=== PATIENT | male | born 1975 | race Caucasian/White ===

== ENCOUNTER → 2018-07-21 14:52 | Outpatient (CLI) | payer OTHER ==
[2016-05-03 10:30] VITALS: BMI 25.8
[~2018-07-21 14:52] MED LIST: ATIVAN0.5 MG PO; HYDROCODONE-APA1 TAB PO; PEPCID20 MG PO
== END | disposition home or self-care (01) ==
LOC: D.MRI 14:52
PROVIDERS: ATTEND Orthopaedic Surgery
DX: M25.522 Pain in left elbow (principal)

== ENCOUNTER 2018-08-07 08:00 | Day surgery (SDC) | payer OTHER ==
[~2018-08-07] VITALS: Ht 182.9 cm; Wt 95.3 kg
[2018-08-07 08:12] VITALS: BP 124/76; Ht 182.9 cm; Wt 95.3 kg
[2018-08-07] MEDS ORDERED: HYDROCODON-ACE1 EA10 PO (10:29)
--- NOTE | 2018-08-07 11:45 | NUR ---
DC INSTRUCTIONS GIVEN TO PT/FAMILY. STATE UNDERSTANDING. DC'D IV CATH FULLY INTACT. PT'S MOTHER TOOK PT'S PRESCRIPTION TO BRING TO PHARMACY.
--- NOTE | 2018-08-07 11:57 | NUR ---
PT LEFT UNIT VIA WC AT 1156
--- NOTE | 2018-08-10 11:22 | OP ---
PATIENT NAME: SUHAIL CARUSO III MEDICAL RECORD: [id number] :73 LOCATION:[facility] ADMISSION DATE: SURGEON: PERRY BORDEN MD DATE OF OPERATION: 08/07/2018 PREOPERATIVE DIAGNOSIS: Recalcitrant left lateral epicondylectomy with extensor communis avulsion. OPERATIVE SUMMARY IN DETAIL: After obtaining the appropriate preoperative orthopedic surgery consent as well as anesthetic consultation, evaluation, and clearance, the patient was brought to the operating room and placed on the operating table in the supine position. After general laryngeal mask was administered, tourniquet was placed about the proximal aspect of the left upper extremity. The left upper extremity was then prepped and draped in routine sterile fashion. The arm was elevated and exsanguinated, and the tourniquet was inflated to 250 mmHg. An incision was made over the lateral epicondyle and taken down to the level of the fascia. The torn extensor mechanism was easily identifiable. An elliptical incision was done to get to good viable tendon. A small portion of the lateral epicondyle was then incised gently with the small sagittal saw. Copious irrigation was then followed by placing a 3.0 SutureTak into the lateral epicondyle. The FiberWires were then used to reapproximate the extensor mechanism with excellent reapproximation and good securement back to the lateral epicondyle. This was then oversewn with #1 Vicryl followed by 2-0 Vicryl and 4-0 Prolene in running fashion. Sterile dressings were applied. Tourniquet was deflated. The patient was placed in a sling and taken to the recovery room in stable condition. All final needle and sponge counts were correct. TRANSINT:[id number] Voice Confirmation ID: [id number] DOCUMENT ID: [id number] PERRY BORDEN MD at 1122 CC: [id number] DICTATION DATE: 08/07/18 1137 ALMOND SORTER: 08/07/18 1223 [facility] 08/07/18 [place] [id number]
== END 2018-08-07 11:56 | disposition home or self-care (01) ==
LOC: D.OPS 08:00 → D.PAN 11:00 → D.OPS 11:56
PROVIDERS: ATTEND Orthopaedic Surgery
DX: S56.912A Strain of unspecified muscles, fascia and tendons at forearm level, left arm, initial encounter (principal); M77.12 Lateral epicondylitis, left elbow; Z01.812 Encounter for preprocedural laboratory examination

== ENCOUNTER → 2018-10-28 14:26 | Outpatient (CLI) | payer OTHER ==
[2018-08-07 08:12] VITALS: BMI 28.5
[~2018-10-28 14:26] MED LIST changes: +HYDROCODON-ACE1 EA10 PO
== END | disposition home or self-care (01) ==
LOC: D.MRI 14:26
PROVIDERS: ATTEND Orthopaedic Surgery
DX: M77.12 Lateral epicondylitis, left elbow (principal)

== ENCOUNTER 2018-12-01 07:10 | Day surgery (SDC) | payer OTHER ==
[~2018-12-01] VITALS: Ht 182.9 cm; Wt 95.3 kg
[2018-12-01 09:08] VITALS: BP 109/69; Ht 182.9 cm; Wt 95.3 kg
[2018-12-01] MEDS ORDERED: PERCOCET 10-321 EAC1 PO (12:03)
--- NOTE | 2018-12-01 14:19 | NUR ---
IV REMOVED 1400 PT VOIDED
--- NOTE | 2018-12-04 11:53 | OP ---
PATIENT NAME: SUHAIL CARUSO III MEDICAL RECORD: [id number] :73 LOCATION:[facility] ADMISSION DATE: SURGEON: PERRY BORDEN MD DATE OF OPERATION: 12/01/2018 PREOPERATIVE DIAGNOSIS: Repeat avulsion of the extensor mechanism of the right lateral epicondyle. POSTOPERATIVE DIAGNOSIS: Repeat avulsion of the extensor mechanism of the right lateral epicondyle. PROCEDURE: Repeat lateral epicondylectomy with repair. SURGEON: Perry Borden MD STOCK SUPERVISOR: Irving Arora INTRAOPERATIVE COMPLICATIONS: None. SUMMARY OF PATHOLOGIC FINDINGS: The patient was indeed found to have recurrent avulsion after injury he sustained in the prior postoperative period. This resulted in tearing of the extensor mechanism off the lateral epicondyle, which required repeat explorative surgery and repeat repair. OPERATIVE SUMMARY IN DETAIL: After obtaining the appropriate preoperative orthopedic surgery consent as well as anesthetic consultation, evaluation and clearance, the patient was brought to the operating room and placed on the operating table in supine position. After general laryngeal mask airway was administered, the tourniquet was placed on the proximal aspect of the right upper extremity. Right upper extremity was then prepped and draped in routine sterile fashion. At this time, the appropriate preoperative timeout was taken by all and agreed upon by all using the appropriate patient identifiers. At this point, arm was elevated, exsanguinated and tourniquet was inflated to 250 mmHg. The utilized incision was utilized in the past only slightly longer. This was again taken down to the level of lateral epicondyle. Care was taken to stay out of the elbow joint itself. Elliptical incision was done of all scar tissue. The [place] tendons of the extensor mechanism were found, freed up, and then a SwiveLock from [employer] was placed into the lateral epicondyle again with good fixation and utilized for reapproximation of the extensor tendon mass. Having completed this, the fascia was oversewn with a #1 Vicryl followed by 2-0 Vicryl and a 4-0 Prolene in running fashion. Sterile dressings were applied. Tourniquet was deflated. The patient was awakened and taken to the recovery room in stable condition. All final needle and sponge counts were correct. TRANSINT:[id number] Voice Confirmation ID: [id number] DOCUMENT ID: [id number] PERRY BORDEN MD at 1153 CC: [id number] DICTATION DATE: 12/04/18 1117 TELEGRAPH AND TELETYPE OPERATOR: 12/04/18 1144 [facility] [place] 12/01/18 [place] [id number] [place] [address]
== END 2018-12-01 14:20 | disposition home or self-care (01) ==
LOC: D.OPS 07:10 → D.PAN 11:45 → D.OPS 11:55 → D.PAN 12:00 → D.OPS 14:20
PROVIDERS: ATTEND Orthopaedic Surgery
DX: S56.912A Strain of unspecified muscles, fascia and tendons at forearm level, left arm, initial encounter (principal); M77.12 Lateral epicondylitis, left elbow

== ENCOUNTER → 2019-06-01 13:04 | Outpatient (CLI) | payer OTHER ==
[2018-12-01 09:08] VITALS: BMI 28.5
[~2019-06-01 13:04] MED LIST changes: +PERCOCET 10-321 EAC1 PO
== END | disposition home or self-care (01) ==
LOC: D.MRI 13:04
PROVIDERS: ATTEND Orthopaedic Surgery
DX: R22.41 Localized swelling, mass and lump, right lower limb (principal)

== ENCOUNTER 2019-07-09 09:30 | Day surgery (SDC) | payer OTHER ==
[2018-12-01 09:08] VITALS: Ht 182.9 cm; Wt 90.7 kg
[~2019-07-09] VITALS: Ht 182.9 cm; Wt 90.7 kg
[~2019-07-09 09:30] MED LIST changes: +ANUSOL-HC25 MG RC; +LEXAPRO10 MG PO; +TRAZODONE HCL150 MG PO
[2019-07-09 10:03] VITALS: BP 116/69; BMI 27.2
[2019-07-09] MEDS ORDERED: HYDROCODON-ACE1 EA10 PO (14:36)
--- NOTE | 2019-07-13 09:56 | OP ---
PATIENT NAME: SUHAIL CARUSO III MEDICAL RECORD: [id number] :73 LOCATION:[facility] ADMISSION DATE: SURGEON: PERRY BORDEN MD DATE OF OPERATION: 07/09/2019 PREOPERATIVE DIAGNOSIS: Infrapatellar bursal mass. POSTOPERATIVE DIAGNOSIS: Infrapatellar bursal mass. PROCEDURE: Excision of infrapatellar bursal mass. SURGEON: Perry Borden MD SKIVER SOCK LININGS: WOODROW Millan INTRAOPERATIVE COMPLICATIONS: None. SUMMARY OF PATHOLOGIC FINDINGS: Directly over the patient's tibial tuberosity, the infrapatellar bursa was hypertrophic, thickened and multidirectional had grown. This is consistent with the patient's examination, MRI and pain. Upon excision, it was found that the patient's infrapatellar bursa essentially had grown out multiple finger-like projections. I did not see any evidence of neoplasm. Therefore, the surgery was continued in all arms of this infrapatellar bursa were removed. The bursa itself was extremely thickened, but did not involve the paratenon of the patellar tendon. OPERATIVE SUMMARY IN DETAIL: After obtaining the appropriate preoperative orthopedic surgery consent as well as anesthetic consultation, evaluation and clearance, the patient was brought to the operating room and placed on the operating table in a supine position. After general laryngeal mask airway was administered, the patient's right lower extremity was prepped and draped in routine sterile fashion. No tourniquet was utilized in this case. Incision was made directly over the tibial tuberosity given the MRI guidance. Just below the subQ layer, the bursa was encountered and found to be extremely thickened. Careful dissection was carried out both proximally, distally, medially and laterally. There were some extensions unexpected. They were also dissected carefully. The entire bursa was removed en bloc and sent for pathologic review. It was of note that the paratenon was not violated, but this was a very lobulated bursitis. After all had been removed, the area was completely irrigated and closed by WOODROW Millan. The area was locally infiltrated with 0.25% Marcaine with epinephrine. Sterile dressings were applied. The patient was awakened and taken to recovery room in stable condition. All final needle and sponge counts were correct. TRANSINT:[id number] Voice Confirmation ID: [id number] DOCUMENT ID: [id number] PERRY BORDEN MD at 0956 CC: [id number] DICTATION DATE: 07/10/19 1025 CLINICAL RESEARCHER: 07/10/19 1313 [facility] [place] 07/09/19 [place] [id number] [place] [address]
== END 2019-07-09 16:55 | disposition home or self-care (01) ==
LOC: D.OPS 09:30 → D.PAN 09:45 → D.OPS 11:30
PROVIDERS: ATTEND Orthopaedic Surgery
DX: R22.41 Localized swelling, mass and lump, right lower limb (principal); M25.561 Pain in right knee

== ENCOUNTER → 2019-08-20 12:34 | Outpatient (CLI) | payer OTHER | END | disposition home or self-care (01) | LOC: D.MRI 12:34 | PROVIDERS: ATTEND Clinical Nurse Specialist Family Health | DX: M25.561 Pain in right knee (principal) ==

== ENCOUNTER 2019-08-24 05:04 | Day surgery (SDC) | payer OTHER ==
[~2019-08-24] VITALS: Ht 182.9 cm; Wt 90.7 kg
[2019-08-24 06:03] LABS: BASOPHILS 0.4 % (0-2); EOSINOPHILS 0.6 % (0-7); HEMATOCRIT 44.2 % (42.0-54.0); HEMOGLOBIN 14.3 g/dL (13.5-17.5); IMMATURE GRANULOCYTES 0.4 % (0-5); MCH 30.6 pg (26.0-34.0); MCHC 32.4 g/dL (31.0-37.0); MCV 94.4 fL (80.0-100.0); MONOCYTES 13.6 % (2-11); PLATELET COUNT 205 10x3/uL (130-400); RBC 4.68 10x6/uL (4.20-6.10); WBC 5.2 10x3/uL (4.8-10.8)
[2019-08-24 06:16] VITALS: BP 117/70; Ht 182.9 cm; Wt 90.7 kg
[2019-08-24 06:20] LABS: BILIRUBIN NEGATIVE (NEGATIVE); GLUCOSE NEGATIVE (NEGATIVE); KETONE NEGATIVE (NEGATIVE); NITRITE NEGATIVE (NEGATIVE); UROBILINOGEN NORMAL (NORMAL)
[2019-08-24] MEDS ORDERED: HYDROCODON-ACE1 EA10 PO (08:05)
--- NOTE | 2019-08-26 06:43 | OP ---
PATIENT NAME: SUHAIL CARUSO III MEDICAL RECORD: [id number] :73 LOCATION:[facility] ADMISSION DATE: SURGEON: PERRY BORDEN MD DATE OF OPERATION: 08/24/2019 PREOPERATIVE DIAGNOSES: Hematoma, right tibial tuberosity, status post Saleem-Schlatter resection. POSTOPERATIVE DIAGNOSES: Hematoma, right tibial tuberosity, status post Saleem-Schlatter resection. PROCEDURE: Open debridement -- excisional to include skin, subcutaneous tissue, portions of fat and fascia. SURGEON: Perry Borden MD AUTOMATIC LUMP MAKING MACHINE TENDER: WOODROW Millan INTRAOPERATIVE COMPLICATIONS: None. SUMMARY OF PATHOLOGIC FINDINGS: Very base of the wound, the patient did have a very hard hematoma. It was cultured. A combination of curettage and rongeur were utilized to completely debride the small pocket. After copious irrigation, the pocket was packed. OPERATIVE SUMMARY IN DETAIL: After obtaining the appropriate preoperative orthopedic surgery consent as well as anesthetic consultation, evaluation and clearance, the patient was brought to the operating room and placed on the operating table in a supine position. After adequate general TIVA anesthesia was administered, the patient's right lower extremity was prepped and draped in routine sterile fashion. The area in question of the tibial tuberosity was incised along its previous incision line. There was a very thickened edematous tissue; however, at the base of it, there was clearly hematoma. The hematoma was evacuated in its entirety and then a combination of scalpel, rongeur were utilized to completely excisionally debride the wound, which measured less than 20 cm in total aggregate. Having completed this, the wound was packed with quarter-inch Nu Gauze. Sterile dressings were applied. The patient was awakened, taken to recovery room in stable condition. All final needle and sponge counts were correct. TRANSINT:[id number] Voice Confirmation ID: [id number] DOCUMENT ID: [id number] SUHA FENG, PERRY OQUENDO at 0643 CC: [id number] DICTATION DATE: 08/24/19820 PUBLIC RELATIONS ACCOUNT EXECUTIVE: 08/24/19 1151 [facility] 08/24/19 [place] [address]
== END 2019-08-24 09:50 | disposition home or self-care (01) ==
LOC: D.OPS 05:04 → D.PAN 07:30 → D.OPS 09:50
PROVIDERS: Anesthesiology; ATTEND Orthopaedic Surgery
DX: M96.841 Postprocedural hematoma of a musculoskeletal structure following other procedure (principal)